=== PATIENT | female | born 1975 ===

== ENCOUNTER 2017-09-17 19:38 | Emergency (ER) | payer MEDICAID ==
[2017-09-17 19:38] VITALS: BMI 29.2
[2017-09-17 19:44] VITALS: BP 121/86; PULSE 98; RESP 16; TEMP 97.2; O2SAT 99
--- NOTE | 2017-09-17 20:14 | ED PDOC ---
Lower Extremity Pain/Injury Time Seen by Provider: 09/17/17 19:45 Chief Complaint (Nursing): Lower Extremity Problem/Injury Chief Complaint (Provider): Foot Injury History Per: Patient History/Exam Limitations: no limitations Onset/Duration Of Symptoms: Worse Since (08/30/17) Current Symptoms Are (Timing): Still Present Additional Complaint(s): Zoya De La O is a 41 year old female who presents to the ED complaining of a right foot for 3 weeks. Patient states she kicked a drawer with her bare foot sustaining injury 3 weeks go. She did not seek medical attention at time of injury but presents today with persistent pain. Patient took 1/2 tab of Tylenol #3 with no relief. No associated numbness or tingling to the affected area. PMD: Olya Mccabe DO Past Medical History Reviewed: Historical Data, Nursing Documentation, Vital Signs Vital Signs: Last Vital Signs Temp 97.2 F L 09/17/17 19:41 Pulse 98 H 09/17/17 19:41 Resp 16 09/17/17 19:41 BP 121/86 09/17/17 19:41 Pulse Ox 99 09/17/17 19:41 - Medical History PMH: Anxiety - Surgical History Surgical History: Tonsillectomy - Family History Family History: States: No Known Family Hx - Living Arrangements Living Arrangements: With Family - Social History Current smoker - smoking cessation education provided: Yes Alcohol: Occasional Drugs: Denies - Home Medications Home Medications: Ambulatory Orders Medication Instructions Recorded Tylenol 325 tab PO PRN PRN 03/13/14 Famotidine [Pepcid] 20 mg PO BID #28 tab 12/17/14 Ferrous Sulfate 325 mg PO BID #60 tab 12/17/14 Vitamins [ 1 Plus 1 tab PO DAILY #60 tab 04/24/15 Iron] Ascorbic Acid [Vitamin C] 250 mg PO BID #60 tab 12/25/15 Benzocaine/Menthol INTERMEDIATE [Dermoplast] 1 sprays TOP PRN PRN #1 aero 12/25/15 Ferrous Sulfate [Feosol] 325 mg PO BID #60 tab 12/25/15 Ibuprofen [Motrin Tab] 600 mg PO Q8 #64 tab 12/25/15 Sennosides/Docusate Sodium 1 each PO HS PRN #15 tablet 12/25/15 [Senokot-S Tablet] Ibuprofen [Motrin Tab] 800 mg PO Q8 PRN #20 tab 09/17/17 - Allergies Allergies/Adverse Reactions: Allergies Allergy/AdvReac Type Severity Reaction Status Date / Time No Known Allergies Allergy Verified 12/19/15 17:43 Wells Criteria for PE - Wells Criteria for Pulmonary Embolism Clinical Signs and Symptoms of DVT: No P.E is #1 Diagnosis, or Equally Likely: No Heart Rate >100: No Immobilization at least 3 days;Surgery previous 4 weeks: No Previous, objectively diagnosed PE or DVT: No Hemoptysis: No Malignancy w/treatment within 6 months, or palliative: No Total Score: 0 Review of Systems ROS Statement: Except As Marked, All Systems Reviewed And Found Negative Musculoskeletal: Positive for: Foot Pain (right foot injury) Physical Exam - Reviewed Nursing Documentation Reviewed: Yes Vital Signs Reviewed: Yes - Physical Exam Appears: Positive for: Well, Non-toxic, No Acute Distress Head Exam: Positive for: ATRAUMATIC, NORMAL INSPECTION, NORMOCEPHALIC Skin: Positive for: Normal Color. Negative for: Rash Eye Exam: Positive for: Normal appearance Extremity: Positive for: Tenderness (Overlying distal 4th/5th metatarsals of right foot, non tender right ankle), Swelling (Overlying distal 4th/5th metatarsals of right foot) Neurologic/Psych: Positive for: Alert, Oriented - Laboratory Results Urine POC: Negative (patient declined test, she is certain she is not ) - ECG O2 Sat by Pulse Oximetry: 99 (RA) Pulse Ox Interpretation: Normal - Other Rad Right foot x-ray X-Ray: Interpreted by Me, Viewed By Me X-Ray Interpretation: no fx, no dis Medical Decision Making Medical Decision Making: Time: 20:08 Initial Impression: 41 year old female with right foot injury Plan: --Motrin 600 mg PO --X-Ray Foot Right 3 Views --Reevaluation Patient was seen by podiatry resident, Dr. Noel, at bedside. Resident reviewed x- rays and does not see any acute fracture or dislocation. Resident applied Farzad wrap and orthopedic shoe. Crutches are given. Prescription given for ibuprofen. Patient was given referral for podiatry follow-up. Scribe Attestation: Documented by Eric Rios, acting as a scribe for Yoli Lemon PA-C Provider Scribe Attestation: All medical record entries made by the Scribe were at my direction and personally dictated by me. I have reviewed the chart and agree that the record accurately reflects my personal performance of the history, physical exam, medical decision making, and the department course for this patient. I have also personally directed, reviewed, and agree with the discharge instructions and disposition. Disposition - Clinical Impression Clinical Impression: Foot contusion - Patient ED Disposition Is Patient to be Admitted: No Counseled Patient/Family Regarding: Studies Performed, Diagnosis, Need For Followup, Rx Given - Disposition Referrals: Camryn Maciel DPM [Staff Provider] - Disposition: Routine/Home Disposition Time: 21:53 Condition: STABLE Additional Instructions: Ice, rest and elevate affected area. Take prescription meds as directed as needed for pain. Follow-up with bander operator in 2-3 days. Prescriptions: Ibuprofen [Motrin Tab] 800 mg PO Q8 PRN #20 tab PRN Reason: Pain, Moderate (4-7) Instructions: Crutch Instructions (ED), Foot Contusion (ED) Forms: [employer] ([place])
--- NOTE | 2017-09-17 22:36 | CP.PCM.CON ---
History of Present Illness - History of Present Illness History of Present Illness: 41 y.o female with PMH of anxiety and panic attacks presents to ED complaining of right foot pain for 3 weeks. 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 She states that she felt immediate pain. Reports the pain has persist for 3 weeks. She reports the pain as a stabbing pain and describes the pain being localized to the lateral aspect of the foot at 4th metatarsal head. Does not radiate. She has tried soaking with warm water and heating. Denies numbness/tingling. Denies n/v/sob/cp/chills/f. PMH: anxiety and panic attacks PSH: tonsillectomy ALL: NKDA MEDS: see medication list FH: Father DM, Mother-denies SH: 1ppd 25 years, socially drinks, reports smoking marijuana Past Patient History - Past Medical History & Family History Past Medical History?: No - Past Social History Alcohol: Occasional Drugs: Denies - MUSCULOSKELETAL/RHEUMATOLOGICAL Hx Falls: No - PSYCHIATRIC Hx Anxiety: Yes - SURGICAL HISTORY Hx Tonsillectomy: Yes - ANESTHESIA Hx Anesthesia: Yes Hx Anesthesia Reactions: No Hx Malignant Hyperthermia: No Meds Home Medications: Home Medication List Medication Instructions Recorded Confirmed Type Ibuprofen [Motrin Tab] 800 mg PO Q8 PRN #20 tab 09/17/17 Rx Allergies/Adverse Reactions: Allergies Allergy/AdvReac Type Severity Reaction Status Date / Time No Known Allergies Allergy Verified 12/19/15 17:43 Physical Exam - Constitutional Appears: Well, Non-toxic, No Acute Distress - Extremities Exam Additional comments: Vasc: DP and PT 2/4 bilaterally, temperature gradient WNL, CFT < 3 seconds x10 digits, no edema noted to the LE Ortho: moderate pain with palpation to the right 4th metatarsal head and to the extensors over the 4th metatarsal head dorsum>plantar, mild pain with 4th MPJ ROM right Neuro: gross and protective sensation intact bilaterally Derm: no open lesions, no clinical signs of infection noted, skin is hydrated - Neurological Exam Neurological exam: Alert, Oriented x3 - Psychiatric Exam Psychiatric exam: Normal Affect, Normal Mood Results - Vital Signs Recent Vital Signs: Last Vital Signs Temp 97.2 F L 09/17/17 19:41 Pulse 98 H 09/17/17 19:41 Resp 16 09/17/17 19:41 BP 121/86 09/17/17 19:41 Pulse Ox 99 09/17/17 22:02 Assessment & Plan - Assessment and Plan (Free Text) Assessment: 41 y.o female with PMH of anxiety and panic attacks presents to ED complaining for contusion right foot Plan: Patient examined and evaluated Discussed the plan in detail with attending Dr. Maciel Charts and labs reviewed- afebrile X-rays reviewed- unremarkable, no fracture noted- read by me SAMUEL applied and surgical shoe Educated on RICE protocol OTC pain medication for pain management Instructed to be PWB. Use crutches as needed. Will f/u at [facility] next Friday with Dr. Maciel. Pt told to call to make an appointment Thank you for the consult
--- NOTE | 2017-09-18 10:56 | RAD ---
PROCEDURE: Right Foot Radiographs. HISTORY: Posttraumatic foot pain COMPARISON: None. FINDINGS: BONES: Normal. No fracture. JOINTS: Normal. SOFT TISSUES: Normal. OTHER FINDINGS: None. IMPRESSION: No acute findings related to/accounting for the clinical presentation.
== END 2017-09-17 22:05 | disposition home or self-care (01) ==
LOC: H.ER 19:38
DX: S90.31XA Contusion of right foot, initial encounter (principal); W22.8XXA Striking against or struck by other objects, initial encounter; Y92.89 Other specified places as the place of occurrence of the external cause; F41.9 Anxiety disorder, unspecified

== ENCOUNTER 2018-10-06 23:48 | Emergency (ER) | payer MEDICAID ==
[2018-10-06 23:48] VITALS: BMI 29.2
== END 2018-10-07 00:10 | disposition left against medical advice (07) ==
LOC: H.ER 23:48
DX: Z02.89 Encounter for other administrative examinations (principal)
CPT/HCPCS: 99281; LWBS0